=== PATIENT | male | born 1980 | race Caucasian/White ===

== ENCOUNTER 2024-07-15 07:30 | Emergency (ER) | payer SELFPAY ==
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
[2024-07-15 07:35] VITALS: BP 169/119; PULSE 73; RESP 20; TEMP 36.8; O2SAT 99; BMI 25.5
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
[2024-07-15 10:00] VITALS: BP 152/97; PULSE 78; RESP 18; TEMP 36.8; O2SAT 98
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
[2024-07-15 10:52] VITALS: BP 152/97; PULSE 78; RESP 18; TEMP 36.8; O2SAT 98
== END 2024-07-15 10:52 | disposition home or self-care (01) ==
PROVIDERS: Emergency Provider Student in an Organized Health Care Education/Training Program; PCP Physician Assistant Medical
DX: S00.91XA Abrasion of unspecified part of head, initial encounter (principal); S29.012A Strain of muscle and tendon of back wall of thorax, initial encounter; R51.9 Headache, unspecified; M54.2 Cervicalgia; M25.511 Pain in right shoulder; V43.62XA Car passenger injured in collision with other type car in traffic accident, initial encounter; Y93.89 Activity, other specified; Y92.488 Other paved roadways as the place of occurrence of the external cause; Y99.8 Other external cause status
CPT/HCPCS: 72040; 72070; 73000; 99283; 99284

== ENCOUNTER → 2024-07-15 08:55 | Outpatient (BNV) | payer OTHER, SELFPAY | PROVIDERS: Emergency Provider Student in an Organized Health Care Education/Training Program; PCP Physician Assistant Medical; Visit Provider Radiology Diagnostic Radiology | DX: M54.50 Low back pain, unspecified (principal); M54.2 Cervicalgia; M25.511 Pain in right shoulder | CPT/HCPCS: 72040; 72070; 73000 ==